=== PATIENT | male | born 1995 | race Hispanic/Latino ===

== ENCOUNTER 2021-12-17 20:01 | Inpatient (IN) | payer OTHER, BC ==
[2021-12-17] MEDS ORDERED: Rocuronium Bromide 10 MG/ML (10ML VIAL) ONE (20:10)
[2021-12-17 20:23] LABS: #Basophils 0.1 thou/uL (0.0-0.2); #Eosinphils 0.9 thou/uL (0.0-0.7); #Lymphocytes 4.4 thou/uL (1.20-3.40); #Monocytes 0.7 thou/uL (0.11-0.59); #Neutrophils 3.6 thou/uL (1.40-6.50); %Eosinophils 9.7 % (0.0-10.0); %Lymphocytes 45.2 % (21.0-51.0); %Monocytes 7.2 % (0.0-10.0); %Neutrophils 36.9 % (42.0-75.0); Hemoglobin 16.9 g/dL (14.0-18.0); Mean Corpuscular HGB CONC 33.4 g/dL (32.0-36.0); Mean Corpuscular Hemoglobin 29.2 pg (27.0-31.0); Mean Corpuscular Volume 87.4 fL (78.0-98.0); Mean Platelet Volume 7.9 fL (7.4-10.4); Platelet Count 237 thou/uL (130-400); Red Blood Cell (RBC) Count 5.79 mill/uL (4.70-6.10); White Blood Cell (WBC) Count 9.8 thou/uL (4.8-10.8)
[2021-12-17] MEDS ORDERED: Promethazine HCl 25 MG/ML VIAL IM PRN (20:26)
[2021-12-17] MEDS ORDERED: HumaLOG 300 UNITS/3 ML VIAL SC PRN (20:26)
[2021-12-17] MEDS ORDERED: Ondansetron PF 4 MG/2 ML Vial IVP PRN (20:26)
[2021-12-17] MEDS ORDERED: Dextrose 50% Abboject 50 ML SYRINGE SLOW IVP PRN (20:26)
[2021-12-17] MEDS ORDERED: Dextrose 5% in Water 1,000 ML IV PRN (20:26)
[2021-12-17] MEDS ORDERED: hydrALAZINE 20 MG/ML VIAL SLOW IVP PRN (20:26)
[2021-12-17 20:33] LABS: INR-International Normal Ratio 0.9; Prothrombin Time 12.4 sec (12.0-14.7)
[2021-12-17 20:34] LABS: PTT 25.4 sec (22.9-36.1)
[2021-12-17 20:37] LABS: Actual Bicarbonate (HCO3a) 21.7 mEq/L (22-28); Analyzer IN Cardio ER; Base Excess (BEa) -1.2 mEq/L (-2.0 to +3.0); CO2 Tension 32.1 mmHg (35.0-45.0); Calcium, Ionized (arterial) 1.16 mmol/L (1.12-1.30); Carboxyhemoglobin (COHb) 0.3 gm% (0.0-3.0); Hemoglobin (Hb) 16.7 g/dL (14.0-18.0); Potassium - ABG Lab 3.41 mmol/L (3.70-5.30); pH, Arterial 7.45 (7.35-7.45)
[2021-12-17] MEDS ORDERED: niCARdipine 25 MG/10 ML VIAL ONE (20:37)
[2021-12-17 20:44] LABS: ALT (SGPT) 14 U/L (8-55); AST (SGOT) 24 U/L (5-34); Albumin 4.7 g/dL (3.5-5.0); Alkaline Phosphatase 57 U/L (40-110); Anion Gap 16 mmol/L (10-20); BUN (Urea Nitrogen) 20 mg/dL (8.9-20.6); Bilirubin, Total 0.4 mg/dL (0.2-1.2); Calc. Creatinine Clearance 0 mL/min (70-130); Calcium 9.2 mg/dL (7.8-10.44); Carbon Dioxide 22 mmol/L (22-29); Chloride 107 mmol/L (98-107); Globulin 2.9 g/dL (2.4-3.5); Glucose 115 mg/dL (70-105); Potassium 3.6 mmol/L (3.5-5.1); Protein, Total 7.6 g/dL (6.0-8.3); Sodium 141 mmol/L (136-145)
[2021-12-17] MEDS ORDERED: Dexmedetomidine In 0.9 % NaCl 100 ML IVPB SCH (20:45)
[2021-12-17] MEDS ORDERED: Propofol 1,000 MG/100 ML VIAL IV ONE (20:49)
[2021-12-17] MEDS ORDERED: Potassium Phosphate 30 MMOL in Sodium Chloride 0.9% 250 ML 250 ML IVPB SCH (21:00)
[2021-12-17] MEDS ORDERED: Midazolam HCl 2 mg/2 ml Vial ONE (21:07)
[2021-12-17 23:10] LABS: SARS-CoV-2 NAA Rapid Test Not Detected (NotDetected)
[2021-12-17] MEDS: Sodium Chloride 0.9% 1,000 ML IV SCH (23:10)
[2021-12-17] MEDS: Acetaminophen 500 MG TAB PO SCH (23:39)
[2021-12-17] MEDS: Famotidine/PF 20 mg/2ml Vial SLOW IVP SCH (23:39)
[2021-12-17 23:44] LABS: Bacteria/HPF None Seen HPF (None Seen); Bilirubin Negative (Negative); Blood, Urine Negative (Negative); Clarity Clear (Clear); Glucose, Urine (Dipstick) Normal (Negative); Ketone, Urine Negative (Negative); Leukocyte Negative Leu/uL (Negative); Nitrite Negative (Negative); Protein, Urine (Dipstick) Negative (Neg-Trace); RBC/HPF 0-3 HPF (0-3); Specific Gravity, Urine 1.019 (1.002-1.036); Squamous Epithelial None Seen HPF (0-3); Urobilinogen Normal mg/dL (Less than 2); WBC/HPF 0-3 HPF (0-3); pH, Urine 6.5 (5.0-9.0)
[2021-12-18 01:09] LABS: Actual Bicarbonate (HCO3a) 21.7 mEq/L (22-28); Base Excess (BEa) -2.2 mEq/L (-2.0 to +3.0); CO2 Tension 34.7 mmHg (35.0-45.0); Calcium, Ionized (arterial) 1.13 mmol/L (1.12-1.30); Carboxyhemoglobin (COHb) 0.3 gm% (0.0-3.0); Hemoglobin (Hb) 15.3 g/dL (14.0-18.0); O2 Tension (PaO2), arterial 179.4 mmHg (80.0-100.0); Potassium - ABG Lab 3.71 mmol/L (3.70-5.30); pH, Arterial 7.41 (7.35-7.45)
[2021-12-18 01:11] LABS: ALV-art Gradient 62.425 mmHg (0-20); Puncture Site LRA
[2021-12-18 01:40] LABS: Lactic Acid 1.7 mmol/L (0.5-2.2)
[2021-12-18] MEDS ORDERED: Sodium Chloride 0.9% 1,000 ML IV SCH (02:15)
[2021-12-18 02:30] LABS: O2 Tension (PaO2), arterial 581.3 mmHg (80.0-100.0); Puncture Site RRA
[2021-12-18 02:31] LABS: ALV-art Gradient 91.575 mmHg (0-20)
[2021-12-18] MEDS ORDERED: Propofol BOLUS 1,000 MG/100 ML VIAL IV PRN (03:30)
[2021-12-18] MEDS: Propofol 1,000 MG/100 ML VIAL IV PRN ×3 (03:33→15:14)
[2021-12-18 03:56] LABS: #Basophils 0.1 thou/uL (0.0-0.2); #Monocytes 1.1 thou/uL (0.11-0.59); #Neutrophils 11.7 thou/uL (1.40-6.50); %Basophils 0.4 % (0.0-1.0); %Eosinophils 0.2 % (0.0-10.0); %Lymphocytes 7.2 % (21.0-51.0); %Monocytes 7.9 % (0.0-10.0); %Neutrophils 84.3 % (42.0-75.0); Hemoglobin 14.2 g/dL (14.0-18.0); Mean Corpuscular HGB CONC 34.1 g/dL (32.0-36.0); Mean Corpuscular Hemoglobin 29.8 pg (27.0-31.0); Mean Corpuscular Volume 87.4 fL (78.0-98.0); Mean Platelet Volume 8.1 fL (7.4-10.4); Platelet Count 153 thou/uL (130-400); RBC Distribution Width 11.8 % (11.5-14.5); Red Blood Cell (RBC) Count 4.78 mill/uL (4.70-6.10); White Blood Cell (WBC) Count 13.9 thou/uL (4.8-10.8)
[2021-12-18 04:14] LABS: Phosphorus 3.6 mg/dL (2.3-4.7)
[2021-12-18] MEDS: Acetaminophen 500 MG TAB PO SCH ×4 (05:18→23:20)
[2021-12-18 05:36] LABS: Anion Gap 13 mmol/L (10-20); BUN (Urea Nitrogen) 15 mg/dL (8.9-20.6); Calc. Creatinine Clearance 124 mL/min (70-130); Calcium 7.8 mg/dL (7.8-10.44); Carbon Dioxide 22 mmol/L (22-29); Chloride 109 mmol/L (98-107); Glucose 110 mg/dL (70-105); Magnesium 1.6 mg/dL (1.6-2.6); Potassium 3.7 mmol/L (3.5-5.1); Sodium 140 mmol/L (136-145)
[2021-12-18] MEDS: Sodium Chloride 0.9% 1,000 ML IV SCH ×3 (06:27→14:19)
[2021-12-18] MEDS ORDERED: Potassium Phosphate 30 MMOL in Sodium Chloride 0.9% 250 ML 250 ML IVPB SCH (07:15)
[2021-12-18 07:18] LABS: Actual Bicarbonate (HCO3a) 20.6 mEq/L (22-28); Base Excess (BEa) -3.4 mEq/L (-2.0 to +3.0); CO2 Tension 33.9 mmHg (35.0-45.0); Calcium, Ionized (arterial) 1.08 mmol/L (1.12-1.30); Carboxyhemoglobin (COHb) 0.3 gm% (0.0-3.0); O2 Tension (PaO2), arterial 165.7 mmHg (80.0-100.0); Potassium - ABG Lab 3.89 mmol/L (3.70-5.30)
[2021-12-18 07:23] LABS: Puncture Site LRA
[2021-12-18 07:24] LABS: ALV-art Gradient 77.125 mmHg (0-20)
[2021-12-18] MEDS ORDERED: Magnesium Sulfate 3 GM in Sodium Chloride 0.9% 100 ML IVPB SCH (07:30)
[2021-12-18] MEDS ORDERED: Calcium Chloride 13.6 MEQ in Sodium Chloride 0.9% 100 ML IVPB SCH (08:00)
[2021-12-18] MEDS: Famotidine/PF 20 mg/2ml Vial SLOW IVP SCH ×2 (08:17→20:27)
[2021-12-18] MEDS ORDERED: Promethazine HCl 12.5 MG in Sodium Chloride 0.9% 50 ML IVPB PRN (08:46)
[2021-12-18] MEDS ORDERED: levETIRAcetam in NS 500 MG in Premix Bag 1 BAG IVPB SCH (09:00)
[2021-12-18] MEDS: fentaNYL Citrate-0.9 % NaCl/PF 100 ML IVPB PRN ×2 (09:41→21:55)
[2021-12-18] MEDS: Ondansetron PF 4 MG/2 ML Vial IVP SCH ×3 (09:45→20:27)
[2021-12-18] MEDS: levETIRAcetam 500 MG/5 ML VIAL SLOW IVP SCH ×2 (09:46→20:27)
[2021-12-18 11:45] LABS: Amphetamine Not Detected (NotDetected); Barbiturates Screen Not Detected (NotDetected); Benzodiazepine Screen Not Detected (NotDetected); Cocaine Metabolite Screen Not Detected (NotDetected); Methadone Not Detected (NotDetected); Methamphetamine Not Detected (NotDetected); Opiate Screen Not Detected (NotDetected); Oxycodone Screen Not Detected (NotDetected); Phencyclidine (PCP) Not Detected (NotDetected); THC/Cannabinoid Screen Not Detected (NotDetected); Tricyclic Screen Not Detected (NotDetected)
[2021-12-18] MEDS ORDERED: Bacitracin Zinc Ointment 30 gm TUBE TOP PRN (16:42)
[2021-12-18 19:29] LABS: Sodium 140 mmol/L (136-145)
[2021-12-18 22:44] LABS: Sodium 139 mmol/L (136-145)
[2021-12-19] MEDS: Sodium Chloride 0.9% 1,000 ML IV SCH ×3 (00:21→21:01)
[2021-12-19] MEDS: Ondansetron PF 4 MG/2 ML Vial IVP SCH ×4 (02:22→19:57)
[2021-12-19 02:45] LABS: #Eosinphils 0.2 thou/uL (0.0-0.7); #Monocytes 0.8 thou/uL (0.11-0.59); #Neutrophils 7.3 thou/uL (1.40-6.50); %Basophils 0.4 % (0.0-1.0); %Eosinophils 2.4 % (0.0-10.0); %Lymphocytes 10.6 % (21.0-51.0); %Monocytes 8.4 % (0.0-10.0); %Neutrophils 78.3 % (42.0-75.0); Anion Gap 11 mmol/L (10-20); BUN (Urea Nitrogen) 8 mg/dL (8.9-20.6); Calc. Creatinine Clearance 142 mL/min (70-130); Calcium 8.2 mg/dL (7.8-10.44); Carbon Dioxide 19 mmol/L (22-29); Chloride 113 mmol/L (98-107); Glucose 96 mg/dL (70-105); Hemoglobin 12.9 g/dL (14.0-18.0); Magnesium 2.2 mg/dL (1.6-2.6); Mean Corpuscular HGB CONC 34.7 g/dL (32.0-36.0); Mean Corpuscular Hemoglobin 30.9 pg (27.0-31.0); Mean Corpuscular Volume 89.1 fL (78.0-98.0); Mean Platelet Volume 9.4 fL (7.4-10.4); Platelet Count 98 thou/uL (130-400); Platelet Morphology Comment Appears Decreased; Potassium 3.7 mmol/L (3.5-5.1); RBC Distribution Width 11.7 % (11.5-14.5); RBC Morphology Normal; Red Blood Cell (RBC) Count 4.17 mill/uL (4.70-6.10); Sodium 139 mmol/L (136-145); White Blood Cell (WBC) Count 9.4 thou/uL (4.8-10.8)
[2021-12-19 02:49] LABS: Phosphorus 1.9 mg/dL (2.3-4.7)
[2021-12-19] MEDS ORDERED: Potassium Phosphate 30 MMOL in Sodium Chloride 0.9% 250 ML 250 ML IVPB SCH (03:15)
[2021-12-19 03:45] LABS: Sodium 140 mmol/L (136-145)
[2021-12-19] MEDS: Acetaminophen 500 MG TAB PO SCH ×4 (05:12→23:05)
[2021-12-19] MEDS: Propofol 1,000 MG/100 ML VIAL IV PRN (06:04)
[2021-12-19 07:38] LABS: Actual Bicarbonate (HCO3a) 17.1 mEq/L (22-28); Base Excess (BEa) -5.8 mEq/L (-2.0 to +3.0); CO2 Tension 26.5 mmHg (35.0-45.0); Calcium, Ionized (arterial) 1.12 mmol/L (1.12-1.30); Carboxyhemoglobin (COHb) 0.3 gm% (0.0-3.0); Hemoglobin (Hb) 12.9 g/dL (14.0-18.0); O2 Tension (PaO2), arterial 161.6 mmHg (80.0-100.0); Potassium - ABG Lab 4.02 mmol/L (3.70-5.30); pH, Arterial 7.43 (7.35-7.45)
[2021-12-19 07:42] LABS: ALV-art Gradient 90.475 mmHg (0-20); Puncture Site Arterial Line
[2021-12-19] MEDS: Famotidine/PF 20 mg/2ml Vial SLOW IVP SCH ×2 (08:50→19:57)
[2021-12-19] MEDS: levETIRAcetam 500 MG/5 ML VIAL SLOW IVP SCH ×2 (08:50→19:57)
[2021-12-19] MEDS: Scopolamine 1.5 mg/72 hour Patch TD SCH (10:39)
[2021-12-19] MEDS: Morphine 2 MG/ML VIAL SLOW IVP PRN ×3 (14:04→21:14)
[2021-12-20] MEDS: Morphine 2 MG/ML VIAL SLOW IVP PRN ×3 (01:34→18:10)
[2021-12-20] MEDS: Ondansetron PF 4 MG/2 ML Vial IVP SCH ×2 (02:04→09:31)
[2021-12-20] MEDS: Acetaminophen 500 MG TAB PO SCH ×4 (05:34→23:58)
[2021-12-20] MEDS: Sodium Chloride 0.9% 1,000 ML IV SCH (06:50)
[2021-12-20] MEDS: Famotidine/PF 20 mg/2ml Vial SLOW IVP SCH ×2 (09:31→20:51)
[2021-12-20] MEDS: levETIRAcetam 500 MG/5 ML VIAL SLOW IVP SCH ×2 (09:31→20:51)
[2021-12-20 23:52] LABS: Sodium 134 mmol/L (136-145)
[2021-12-21] MEDS: Morphine 2 MG/ML VIAL SLOW IVP PRN (00:29)
[2021-12-21] MEDS: Sodium Chloride 1 GM TAB PO SCH ×4 (01:22→23:35)
[2021-12-21] MEDS: Sodium Chloride 0.9% 1,000 ML IV SCH ×2 (01:30→03:52)
[2021-12-21 04:41] LABS: Anion Gap 15 mmol/L (10-20); BUN (Urea Nitrogen) 10 mg/dL (8.9-20.6); Calc. Creatinine Clearance 141 mL/min (70-130); Calcium 8.6 mg/dL (7.8-10.44); Carbon Dioxide 19 mmol/L (22-29); Chloride 103 mmol/L (98-107); Glucose 100 mg/dL (70-105); Potassium 3.6 mmol/L (3.5-5.1); Sodium 133 mmol/L (136-145)
[2021-12-21] MEDS: Acetaminophen 500 MG TAB PO SCH ×5 (06:06→23:35)
[2021-12-21] MEDS ORDERED: Sodium Chloride 0.9% 1,000 ML IV SCH (07:06)
[2021-12-21] MEDS ORDERED: Sodium Phosphate 30 MMOL in Sodium Chloride 0.9% 250 ML 250 ML IVPB SCH (08:30)
[2021-12-21] MEDS: Polyethylene Glycol 3350 17 GM Packet PO SCH (09:00)
[2021-12-21] MEDS: Famotidine/PF 20 mg/2ml Vial SLOW IVP SCH ×2 (09:01→20:12)
[2021-12-21] MEDS: levETIRAcetam 500 MG/5 ML VIAL SLOW IVP SCH ×2 (09:01→20:12)
[2021-12-21] MEDS: Senokot S 8.6-50 MG TAB PO SCH ×2 (09:01→22:29)
[2021-12-21 09:57] VITALS: BMI 24.2
[2021-12-21 10:10] LABS: Anion Gap 12 mmol/L (10-20); BUN (Urea Nitrogen) 10 mg/dL (8.9-20.6); Calc. Creatinine Clearance 143 mL/min (70-130); Calcium 8.8 mg/dL (7.8-10.44); Carbon Dioxide 21 mmol/L (22-29); Chloride 103 mmol/L (98-107); Glucose 116 mg/dL (70-105); Potassium 3.4 mmol/L (3.5-5.1); Sodium 133 mmol/L (136-145)
[2021-12-21] MEDS ORDERED: SODIUM CHLORIDE IV SCH ×3 (10:15→11:00)
[2021-12-21] MEDS ORDERED: Potassium Chloride 40 MEQ in Premix Bag 1 BAG IVPB SCH (10:15)
[2021-12-21] MEDS ORDERED: Potassium Chloride 40 MEQ in Sodium Chloride 0.9% 250 ML 250 ML IVPB SCH (12:15)
[2021-12-21 15:54] LABS: Sodium 136 mmol/L (136-145)
[2021-12-21 21:39] LABS: Sodium 134 mmol/L (136-145)
[2021-12-22 01:04] LABS: Sodium 132 mmol/L (136-145)
[2021-12-22 04:10] LABS: #Lymphocytes 1.8 thou/uL (1.20-3.40); #Neutrophils 6.1 thou/uL (1.40-6.50); %Basophils 0.5 % (0.0-1.0); %Eosinophils 0.1 % (0.0-10.0); %Lymphocytes 19.8 % (21.0-51.0); %Monocytes 11.2 % (0.0-10.0); %Neutrophils 68.3 % (42.0-75.0); Mean Corpuscular HGB CONC 34.6 g/dL (32.0-36.0); Mean Corpuscular Hemoglobin 29.4 pg (27.0-31.0); Mean Corpuscular Volume 84.8 fL (78.0-98.0); Mean Platelet Volume 7.5 fL (7.4-10.4); Platelet Count 204 thou/uL (130-400); RBC Distribution Width 11.3 % (11.5-14.5); Red Blood Cell (RBC) Count 4.43 mill/uL (4.70-6.10); White Blood Cell (WBC) Count 8.9 thou/uL (4.8-10.8)
[2021-12-22 04:32] LABS: Anion Gap 12 mmol/L (10-20); BUN (Urea Nitrogen) 12 mg/dL (8.9-20.6); Calc. Creatinine Clearance 140 mL/min (70-130); Calcium 8.5 mg/dL (7.8-10.44); Carbon Dioxide 21 mmol/L (22-29); Chloride 103 mmol/L (98-107); Glucose 108 mg/dL (70-105); Phosphorus 2.3 mg/dL (2.3-4.7); Potassium 3.2 mmol/L (3.5-5.1); Sodium 133 mmol/L (136-145)
[2021-12-22] MEDS ORDERED: Potassium Phosphate 30 MMOL in Sodium Chloride 0.9% 250 ML 250 ML IVPB SCH (05:00)
[2021-12-22] MEDS: Acetaminophen 500 MG TAB PO SCH ×3 (05:07→18:27)
[2021-12-22] MEDS: levETIRAcetam 500 MG/5 ML VIAL SLOW IVP SCH ×2 (09:30→20:51)
[2021-12-22] MEDS: Famotidine/PF 20 mg/2ml Vial SLOW IVP SCH ×2 (09:30→20:51)
[2021-12-22] MEDS: Sodium Chloride 1 GM TAB PO SCH ×2 (09:31→18:30)
[2021-12-22 10:02] LABS: Sodium 133 mmol/L (136-145)
[2021-12-22 12:51] LABS: Sodium 133 mmol/L (136-145)
[2021-12-22] MEDS: Scopolamine 1.5 mg/72 hour Patch TD SCH (14:11)
[2021-12-22] MEDS: Polyethylene Glycol 3350 17 GM Packet PO SCH (15:21)
[2021-12-22] MEDS: Senokot S 8.6-50 MG TAB PO SCH ×2 (15:21→21:21)
[2021-12-22] MEDS: Morphine 2 MG/ML VIAL SLOW IVP PRN (16:41)
[2021-12-22 18:06] LABS: Sodium 132 mmol/L (136-145)
[2021-12-22] MEDS: SODIUM CHLORIDE IV SCH (19:26)
[2021-12-22] MEDS: Acetaminophen/Codeine 30-300mg Tablet PO PRN (20:51)
[2021-12-22] MEDS ORDERED: Acetaminophen 500 MG TAB PO SCH (21:00)
[2021-12-23] MEDS: Sodium Chloride 1 GM TAB PO SCH ×4 (00:09→22:04)
[2021-12-23 00:20] LABS: Sodium 130 mmol/L (136-145)
[2021-12-23] MEDS: Acetaminophen/Codeine 30-300mg Tablet PO PRN ×3 (03:22→18:43)
[2021-12-23] MEDS: SODIUM CHLORIDE IV SCH ×2 (05:43→19:36)
[2021-12-23 05:49] LABS: Anion Gap 12 mmol/L (10-20); BUN (Urea Nitrogen) 7 mg/dL (8.9-20.6); Calc. Creatinine Clearance 152 mL/min (70-130); Calcium 8.3 mg/dL (7.8-10.44); Carbon Dioxide 20 mmol/L (22-29); Chloride 102 mmol/L (98-107); Glucose 121 mg/dL (70-105); Magnesium 1.8 mg/dL (1.6-2.6); Phosphorus 2.6 mg/dL (2.3-4.7); Potassium 3.2 mmol/L (3.5-5.1); Sodium 131 mmol/L (136-145)
[2021-12-23 05:53] LABS: #Basophils 0.1 thou/uL (0.0-0.2); #Eosinphils 0.1 thou/uL (0.0-0.7); #Lymphocytes 1.2 thou/uL (1.20-3.40); #Monocytes 0.9 thou/uL (0.11-0.59); #Neutrophils 6.3 thou/uL (1.40-6.50); %Basophils 0.6 % (0.0-1.0); %Eosinophils 0.9 % (0.0-10.0); %Lymphocytes 14.1 % (21.0-51.0); %Monocytes 10.4 % (0.0-10.0); Hemoglobin 13.4 g/dL (14.0-18.0); Mean Corpuscular HGB CONC 33.8 g/dL (32.0-36.0); Mean Corpuscular Hemoglobin 29.1 pg (27.0-31.0); Mean Platelet Volume 8.3 fL (7.4-10.4); Platelet Count 186 thou/uL (130-400); RBC Distribution Width 11.6 % (11.5-14.5); Red Blood Cell (RBC) Count 4.61 mill/uL (4.70-6.10); White Blood Cell (WBC) Count 8.5 thou/uL (4.8-10.8)
[2021-12-23] MEDS: Famotidine/PF 20 mg/2ml Vial SLOW IVP SCH (08:11)
[2021-12-23] MEDS: Polyethylene Glycol 3350 17 GM Packet PO SCH (08:11)
[2021-12-23] MEDS: Senokot S 8.6-50 MG TAB PO SCH ×2 (08:11→20:12)
[2021-12-23] MEDS: levETIRAcetam 500 MG/5 ML VIAL SLOW IVP SCH ×2 (08:11→20:10)
[2021-12-23] MEDS: Acetaminophen 325 MG TAB PO SCH ×3 (08:12→20:08)
[2021-12-23] MEDS ORDERED: Silver Sulfadiazine 50 GM TUBE TOP SCH (11:30)
[2021-12-23] MEDS ORDERED: SODIUM CHLORIDE IV SCH (11:34)
[2021-12-23] MEDS ORDERED: Sodium Chloride 3% 500 ML IVPB SCH ×2 (12:15→19:28)
[2021-12-23] MEDS ORDERED: Potassium Phosphate 30 MMOL in Sodium Chloride 0.9% 250 ML 250 ML IVPB SCH (13:00)
[2021-12-23] MEDS ORDERED: Magnesium 2 GM/50 ML(in water) 2 GM in Premix Bag 1 BAG IVPB SCH (13:00)
[2021-12-23 13:53] LABS: Sodium 134 mmol/L (136-145)
[2021-12-23 18:41] LABS: Sodium 136 mmol/L (136-145)
[2021-12-23] MEDS: Famotidine 20 MG TAB PO SCH (20:09)
[2021-12-23] MEDS: Silver Sulfadiazine 50 GM TUBE TOP SCH (20:10)
[2021-12-23] MEDS: Enoxaparin Sodium 40 MG/0.4 ML SYRINGE SC SCH (20:10)
[2021-12-24 00:08] LABS: Sodium 141 mmol/L (136-145)
[2021-12-24] MEDS ORDERED: Acetaminophen/Codeine 30-300mg Tablet PO SCH (00:15)
[2021-12-24] MEDS: Acetaminophen/Codeine 30-300mg Tablet PO PRN ×4 (04:12→23:11)
[2021-12-24] MEDS: Sodium Chloride 1 GM TAB PO SCH ×3 (05:15→21:18)
[2021-12-24 06:58] LABS: Anion Gap 13 mmol/L (10-20); BUN (Urea Nitrogen) 5 mg/dL (8.9-20.6); Calc. Creatinine Clearance 145 mL/min (70-130); Calcium 8.4 mg/dL (7.8-10.44); Carbon Dioxide 22 mmol/L (22-29); Chloride 109 mmol/L (98-107); Glucose 122 mg/dL (70-105); Potassium 3.5 mmol/L (3.5-5.1); Sodium 140 mmol/L (136-145)
[2021-12-24] MEDS: Acetaminophen 325 MG TAB PO SCH ×3 (08:16→21:18)
[2021-12-24] MEDS: Cyclobenzaprine 10 MG TAB PO PRN (08:17)
[2021-12-24] MEDS: Senokot S 8.6-50 MG TAB PO SCH ×2 (08:17→21:19)
[2021-12-24] MEDS: Famotidine 20 MG TAB PO SCH ×2 (08:17→21:19)
[2021-12-24] MEDS: Silver Sulfadiazine 50 GM TUBE TOP SCH ×2 (08:18→21:38)
[2021-12-24] MEDS: levETIRAcetam 500 MG/5 ML VIAL SLOW IVP SCH ×2 (08:19→21:17)
[2021-12-24] MEDS: Polyethylene Glycol 3350 17 GM Packet PO SCH (08:19)
[2021-12-24 12:34] LABS: Sodium 138 mmol/L (136-145)
[2021-12-24] MEDS: Potassium Chloride 20 MEQ in Premix Bag 1 BAG IVPB SCH ×2 (12:38→15:22)
[2021-12-24 16:44] LABS: SARS-CoV-2 PCR by NAA Not Detected (NotDetected)
[2021-12-24 18:50] LABS: Sodium 138 mmol/L (136-145)
[2021-12-24] MEDS: Enoxaparin Sodium 40 MG/0.4 ML SYRINGE SC SCH (21:17)
[2021-12-25] MEDS: Acetaminophen/Codeine 30-300mg Tablet PO PRN ×3 (06:14→23:45)
[2021-12-25] MEDS: Sodium Chloride 1 GM TAB PO SCH ×3 (06:15→21:48)
[2021-12-25 06:47] LABS: Anion Gap 13 mmol/L (10-20); BUN (Urea Nitrogen) 7 mg/dL (8.9-20.6); Calc. Creatinine Clearance 110 mL/min (70-130); Calcium 9.6 mg/dL (7.8-10.44); Carbon Dioxide 27 mmol/L (22-29); Chloride 101 mmol/L (98-107); Glucose 112 mg/dL (70-105); Potassium 4.1 mmol/L (3.5-5.1); Sodium 137 mmol/L (136-145)
[2021-12-25] MEDS: Famotidine 20 MG TAB PO SCH ×2 (09:57→21:47)
[2021-12-25] MEDS: Scopolamine 1.5 mg/72 hour Patch TD SCH (09:58)
[2021-12-25] MEDS: levETIRAcetam 500 MG/5 ML VIAL SLOW IVP SCH (09:58)
[2021-12-25] MEDS: Acetaminophen 325 MG TAB PO SCH ×3 (09:58→21:47)
[2021-12-25] MEDS: Senokot S 8.6-50 MG TAB PO SCH ×2 (09:58→21:47)
[2021-12-25] MEDS: Silver Sulfadiazine 50 GM TUBE TOP SCH ×2 (09:59→22:01)
[2021-12-25] MEDS: Polyethylene Glycol 3350 17 GM Packet PO SCH (09:59)
[2021-12-25] MEDS: Enoxaparin Sodium 40 MG/0.4 ML SYRINGE SC SCH ×2 (21:48→22:01)
[2021-12-25] MEDS: Cyclobenzaprine 10 MG TAB PO PRN (21:58)
[2021-12-26] MEDS: Sodium Chloride 1 GM TAB PO SCH ×2 (06:35→13:55)
[2021-12-26] MEDS: Acetaminophen/Codeine 30-300mg Tablet PO PRN ×2 (06:36→13:55)
[2021-12-26 07:43] VITALS: BP 130/80; TEMP 99
[2021-12-26 08:50] LABS: Anion Gap 14 mmol/L (10-20); BUN (Urea Nitrogen) 12 mg/dL (8.9-20.6); Calc. Creatinine Clearance 121 mL/min (70-130); Calcium 9.8 mg/dL (7.8-10.44); Carbon Dioxide 26 mmol/L (22-29); Chloride 101 mmol/L (98-107); Glucose 137 mg/dL (70-105); Potassium 3.9 mmol/L (3.5-5.1); Sodium 137 mmol/L (136-145)
[2021-12-26] MEDS: Senokot S 8.6-50 MG TAB PO SCH (09:11)
[2021-12-26] MEDS: Silver Sulfadiazine 50 GM TUBE TOP SCH (09:11)
[2021-12-26] MEDS: Polyethylene Glycol 3350 17 GM Packet PO SCH (09:11)
[2021-12-26] MEDS: Acetaminophen 325 MG TAB PO SCH ×2 (09:11→13:57)
== END 2021-12-26 15:20 | DRG 85 ==
LOC: ERS 20:01 → CCU 20:26 → SURG A 12-23 00:35
PROVIDERS: ADMIT Specialist; ATTEND Surgery
PROC: 5A1945Z Respiratory Ventilation, 24-96 Consecutive Hours (ICD-10-PCS; principal; 2021-12-17)
PROC: 0BH18EZ Insertion of Endotracheal Airway into Trachea, Via Natural or Artificial Opening Endoscopic (ICD-10-PCS; 2021-12-17)
DX: S06.6X0A Traumatic subarachnoid hemorrhage without loss of consciousness, initial encounter (principal); J96.00 Acute respiratory failure, unspecified whether with hypoxia or hypercapnia; S06.1X0A Traumatic cerebral edema without loss of consciousness, initial encounter; E87.1 Hypo-osmolality and hyponatremia; S02.11GA Other fracture of occiput, right side, initial encounter for closed fracture; S02.81XA Fracture of other specified skull and facial bones, right side, initial encounter for closed fracture; S06.5X0A Traumatic subdural hemorrhage without loss of consciousness, initial encounter; I10 Essential (primary) hypertension; S00.03XA Contusion of scalp, initial encounter; G93.89 Other specified disorders of brain; Z20.822 Contact with and (suspected) exposure to COVID-19; J45.909 Unspecified asthma, uncomplicated; E83.39 Other disorders of phosphorus metabolism; E87.6 Hypokalemia; V00.848A Other accident with standing micro-mobility pedestrian conveyance, initial encounter; Y92.89 Other specified places as the place of occurrence of the external cause
CPT/HCPCS: 31500; 36415; 36416; 36600; 51702; 70450; 71045; 72125; 80048; 80306; 80307; 81001; 82550; 82805; 83605; 83735; 83930; 84100; 84145; 84295; 85025; 85610; 85730; 86850; 86900; 86901; 94002; 94003; 94760; 96374; 96375; G0390; J1650; J1953; J2250; J2270; J2405; J2704; J3475; J3480; J3490; J7050; J7131; S0028; U0002; U0003; U0005